=== PATIENT | male | born 1955 | race Caucasian/White ===

== ENCOUNTER 2021-06-15 11:24 | Inpatient (IN) | payer OTHER, BC ==
[2021-06-15 12:24] LABS: BASO % 0.7 % (0-2.0); EOS % 3.5 % (0-4.5); HEMATOCRIT 47.8 % (35.4-49); HEMOGLOBIN 16.4 GM/dL (11.7-16.9); LYMPH % 13.4 % (8-40); MCH 30.6 pg (25.7-33.7); MCHC 34.3 g/dl (32.0-35.9); MEAN CELL VOLUME 89.2 fl (80-96); MEAN PLT VOLUME 8.6 fl (7.5-11.1); MONO % 9.6 % (3.8-10.2); NEUT % 72.8 % (42.8-82.8); PLATELET COUNT 269 10^3/uL (134-434); RBC 5.36 M/mm3 (4.00-5.60); RDW 13.7 % (11.9-15.9); WHITE BLOOD COUNT 5.3 K/mm3 (4.0-10.0)
[2021-06-15] MEDS ORDERED: ONDANSETRON 4 MG/2 ML VIAL IVPUSH ONE (12:34)
[2021-06-15] MEDS ORDERED: ACETAMINOPHEN 1000 MG/100 ML VIAL IVPB ONE (12:34)
[2021-06-15] MEDS ORDERED: SODIUM CHLORIDE 0.9% 500 ML INFUS.BAG IV ONE (12:34)
[2021-06-15] MEDS ORDERED: ONDANSETRON 4 MG/2 ML VIAL ONE (12:38)
[2021-06-15] MEDS ORDERED: ACETAMINOPHEN INJECTION 100 ML IVPB ONE (12:38)
[2021-06-15 12:43] LABS: ALBUMIN 3.9 g/dl (3.4-5.0); BLOOD UREA NITROGEN 12.6 mg/dL (7-18); CALCIUM 10.6 mg/dL (8.5-10.1)
[2021-06-15 12:46] LABS: CREATININE 0.9 mg/dL (0.55-1.3)
[2021-06-15 12:48] LABS: BILIRUBIN,TOTAL 0.6 mg/dL (0.2-1); TOT PROT 7.7 g/dl (6.4-8.2)
[2021-06-15 13:12] LABS: URINE APPEARANCE CLEAR; URINE BILIRUBIN NEGATIVE (NEGATIVE); URINE COLOR YELLOW; URINE GLUCOSE (UA) NEGATIVE (NEGATIVE); URINE KETONE NEGATIVE (NEGATIVE)
[2021-06-15 13:13] LABS: PH,URINE 6.5 (5.0-8.0); URINE LEUK ESTERASE 1+ (NEGATIVE); URINE NITRITE NEGATIVE (NEGATIVE); URINE PROTEIN TRACE (NEGATIVE)
[2021-06-15] MEDS ORDERED: ACETAMINOPHEN 1000 MG/100 ML VIAL IVPB PRN (14:25)
[2021-06-15] MEDS ORDERED: ONDANSETRON 4 MG/2 ML VIAL IVPUSH PRN ×2 (14:26→17:46)
[2021-06-15] MEDS ORDERED: LACTATED RINGERS SOLUTION 1,000 ML IV SCH (15:15)
[2021-06-15] MEDS ORDERED: PROPOFOL 20 ML ONE ×2 (15:53→15:57)
[2021-06-15] MEDS ORDERED: MIDAZOLAM HCL 2 MG/2 ML SINGLE DOSE VIAL ONE (15:53)
[2021-06-15] MEDS ORDERED: SUCCINYLCHOLINE CHLORIDE 200 MG/10 ML SYRINGE ONE (15:57)
[2021-06-15] MEDS ORDERED: ceFAZolin SODIUM 1 GM VIAL ONE ×2 (15:59→17:19)
[2021-06-15] MEDS ORDERED: ceFAZolin SODIUM 1 GM VIAL IVPB ONE (16:38)
[2021-06-15 16:53] VITALS: BMI 20.1
[2021-06-15] MEDS ORDERED: KETOROLAC TROMETHAMINE 30 MG/1 ML VIAL ONE (17:19)
[2021-06-15] MEDS ORDERED: LABETALOL HCL 5 MG/1 ML (100MG/20 ML VIAL) IVPUSH ONE ×2 (18:18→18:20)
[2021-06-15] MEDS: ACETAMINOPHEN 1000 MG/100 ML VIAL IVPB PRN (20:42)
[2021-06-16] MEDS: ACETAMINOPHEN 1000 MG/100 ML VIAL IVPB PRN (06:23)
[2021-06-16] MEDS ORDERED: TAMSULOSIN HCL 0.4 MG CAP PO SCH (08:30)
[2021-06-16 08:41] LABS: BASO % 0.3 % (0-2.0); EOS % 5.9 % (0-4.5); HEMATOCRIT 43.1 % (35.4-49); HEMOGLOBIN 14.7 GM/dL (11.7-16.9); LYMPH % 16.1 % (8-40); MCH 30.9 pg (25.7-33.7); MCHC 34.2 g/dl (32.0-35.9); MEAN CELL VOLUME 90.3 fl (80-96); MEAN PLT VOLUME 8.9 fl (7.5-11.1); MONO % 10.9 % (3.8-10.2); NEUT % 66.8 % (42.8-82.8); PLATELET COUNT 233 10^3/uL (134-434); RBC 4.77 M/mm3 (4.00-5.60); RDW 13.7 % (11.9-15.9); WHITE BLOOD COUNT 4.9 K/mm3 (4.0-10.0)
[2021-06-16 09:06] LABS: ALBUMIN 3.2 g/dl (3.4-5.0); BLOOD UREA NITROGEN 11.7 mg/dL (7-18); CALCIUM 9.3 mg/dL (8.5-10.1); MAGNESIUM 1.9 mg/dL (1.8-2.4)
[2021-06-16 09:09] LABS: CREATININE 0.8 mg/dL (0.55-1.3); PHOSPHOROUS 2.5 mg/dL (2.5-4.9)
[2021-06-16 09:10] LABS: BILIRUBIN,TOTAL 0.8 mg/dL (0.2-1)
[2021-06-16 09:11] LABS: TOT PROT 6.5 g/dl (6.4-8.2)
[2021-06-16] MEDS ORDERED: HYDROCHLOROTHIAZIDE 50 MG TABLET PO ONE (09:26)
[2021-06-16 10:17] VITALS: BP 140/77; PULSE 59; TEMP 98.4
[2021-06-16] MEDS ORDERED: HYDROCHLOROTHIAZIDE 25 MG TABLET (FP) PO ONE (10:45)
== END 2021-06-16 16:18 | disposition home or self-care (01) | DRG 661 ==
LOC: JER 11:24 → JERBED 12:45 → OBSVTOIN 15:04 → J6S 15:07
PROVIDERS: ADMIT Internal Medicine; ATTEND Internal Medicine
PROC: BT1FZZZ Fluoroscopy of Left Kidney, Ureter and Bladder (ICD-10-PCS; 2021-06-15)
PROC: 0TC70ZZ Extirpation of Matter from Left Ureter, Open Approach (ICD-10-PCS; principal; 2021-06-15 14:00)
PROC: 0T778DZ Dilation of Left Ureter with Intraluminal Device, Via Natural or Artificial Opening Endoscopic (ICD-10-PCS; 2021-06-15 14:00)
PROC: 0TF Urinary System, Fragmentation (ICD-10-PCS; 2021-06-15 14:00)
DX: N13.2 Hydronephrosis with renal and ureteral calculous obstruction (principal); I10 Essential (primary) hypertension; R31.9 Hematuria, unspecified; R30.0 Dysuria; E83.52 Hypercalcemia; Z85.46 Personal history of malignant neoplasm of prostate
CPT/HCPCS: 36415; 80053; 81003; 82360; 83735; 84100; 85025; 86850; 86900; 86901; 87086; 88300-TC; 93005; 93010; 94760; 99285-25; C9803; G0378; J0131; U0003; U0005